=== PATIENT | female | born 1965 | race American Indian/Alaskan Native ===

== ENCOUNTER 2017-06-26 09:37 | Inpatient (IN) | payer MEDICARE ==
[2017-06-26 10:29] LABS: Basophils # (Auto) 0.1 K/mm3 (0.0-0.1); Basophils % (Auto) 0.6 % (0.0-1.8); Eosinophils # (Auto) 0.1 K/mm3 (0.0-0.4); Eosinophils % (Auto) 0.7 % (0.0-4.3); Hematocrit 41.8 % (30.3-42.9); Hemoglobin 14.3 gm/dl (10.1-14.3); Lymphocytes # (Auto) 3.5 K/mm3 (1.2-5.4); Lymphocytes % (Auto) 31.8 % (13.4-35.0); Mean Corpuscular HGB Conc 34 % (30-34); Mean Corpuscular Hemoglobin 29 pg (28-32); Mean Corpuscular Volume 85 fl (79-97); Monocytes # (Auto) 0.6 K/mm3 (0.0-0.8); Monocytes % (Auto) 5.2 % (0.0-7.3); Platelet Count 248 K/mm3 (140-440); Red Blood Count 4.92 M/mm3 (3.65-5.03); Red Cell Distribution Width 14.5 % (13.2-15.2)
[2017-06-26 10:42] LABS: BUN/Creatinine Ratio 14; Blood Urea Nitrogen 7 mg/dL (7-17); Calcium 9.5 mg/dL (8.4-10.2); Hemolysis Index 1
[2017-06-26] MEDS ORDERED: NACL 0.9% 1000 ML 1,000 ML IV ONE (11:21)
--- NOTE | 2017-06-26 12:06 | XRay Report ---
Chest 2 views: History: Chest pain. Findings: Normal cardiomediastinal silhouette. Trachea is midline. No consolidation, pneumothorax or pleural effusion. Impression: No acute cardiopulmonary findings.
[2017-06-26 13:03] LABS: Bilirubin,Urine NEG (Negative); Blood,Urine NEG (Negative); Color,Urine Yellow (Yellow); Protein,Urine <15 mg/dL mg/dL (Negative); Urobilinogen,Urine < 2.0 mg/dL (<2.0)
[2017-06-26 13:09] LABS: Amphetamine Screen,Urine PRESUMPTIVE NEGATIVE; Benzodiazepines Screen,Urine PRESUMPTIVE NEGATIVE; Methadone Screen,Urine PRESUMPTIVE NEGATIVE; Opiate Screen,Urine PRESUMPTIVE NEGATIVE
[2017-06-26 13:27] LABS: Cannabinoid Screen,Urine PRESUMPTIVE POSITIVE; Cocaine Screen,Urine PRESUMPTIVE POSITIVE
--- NOTE | 2017-06-26 16:27 | Emergency Department Report ---
ED Psych HPI - General Chief Complaint: Psych Stated Complaint: MENTAL HEALTH Time Seen by Provider: 06/26/17 10:53 Source: patient Mode of arrival: Ambulatory - History of Present Illness Initial Comments: Patient reports relapse of crack cocaine use and requesting rehab. Reports chest pain -: days(s) Associated Psychiatric Symptoms: none History of same: Yes Quality: intermittent Improves With: none Worsens With: drug use Context: recent drug abuse Associated Symptoms: other (chest pain) Treatments Prior to Arrival: none - Related Data Home Medications Medication Instructions Recorded Confirmed Last Taken Divalproex Sodium [Divalproex 500 mg PO HS 06/26/17 06/26/17 06/23/17 21:00 Sodium ER] Quetiapine Fumarate [QUEtiapine 300 mg PO HS 06/26/17 06/26/17 06/23/17 21:00 Fumarate] Zanaflex 2 mg PO Q4H PRN 06/26/17 06/26/17 Unknown Allergies Allergy/AdvReac Type Severity Reaction Status Date / Time Penicillins Allergy Hives Verified 06/26/17 09:40 ED Review of Systems ROS: Stated complaint: MENTAL HEALTH Other details as noted in HPI Other: GENERAL: No weight change, fatigue, weakness, fever, chills, or night sweats SKIN: No changes in skin or hair, no itching, no rashes, no jaundice HEAD: No trauma, headache, or visual changes EYES: No blurriness, tearing, itching, acute visual loss, conjunctival discoloration, or scleral icterus EARS: No hearing loss, tinnitus, vertigo, or earache NOSE: No rhinorrhea, stuffiness, sneezing, itching, or epistaxis MOUTH: No bleeding gums, hoarseness, sore throat, or swelling CARDIAC: Chest pain. No new murmur, palpitations, dyspnea on exertion, orthopnea, PND, or edema RESPIRATORY: No shortness of breath, wheeze, cough, sputum production, hemoptysis, pneumonia, asthma, bronchitis, or emphysema GI: No change in appetite, nausea, vomiting, dysphagia, change in bowel frequency, diarrhea, constipation, bleeding, hematemesis, melena, hematochezia, or abdominal pain URINARY: No frequency, urgency, polyuria, dysuria, hematuria, or incontinence MUSCULOSKELETAL: No muscle weakness, joint stiffness, decrease in range of motion, redness, swelling NEUROLOGIC: No loss of sensation, numbness, tingling, tremors, weakness, paralysis, seizures HEMATOLOGIC: No anemia, easy bruising, bleeding, petechiae, or purpura ENDOCRINE: No hot or cold intolerance, sweating, polyuria, polydipsia or, polyphagia no thyroid problems PSYCHIATRIC: Drug abuse. No change in mood, no anxiety, no depression ED Past Medical Hx - Past Medical History Hx Hypertension: Yes Hx Diabetes: Yes Hx Psychiatric Treatment: Yes (BIPOLAR, DEPRESSION) Additional medical history: BRONCHITIS - Surgical History Past Surgical History?: No Additional Surgical History: TUBAL LIGATION - Social History Smoking Status: Current Every Day Smoker Substance Use Type: Alcohol, Cocaine, Marijuana - Medications Home Medications: Home Medications Medication Instructions Recorded Confirmed Last Taken Type Divalproex Sodium [Divalproex 500 mg PO HS 06/26/17 06/26/17 06/23/17 21:00 History Sodium ER] Quetiapine Fumarate [QUEtiapine 300 mg PO HS 06/26/17 06/26/17 06/23/17 21:00 History Fumarate] Zanaflex 2 mg PO Q4H PRN 06/26/17 06/26/17 Unknown History ED Physical Exam - General Limitations: No Limitations - Other Other exam information: GENERAL: Patient in no acute distress HEAD: Normocephalic, atraumatic EYES: PERRLA, EOM intact, no scleral icterus, visual mendoza and acuity wnl NOSE: No tenderness, discharge, sinus tenderness MOUTH: No erythema, bleeding, exudate HEART: Regular rate and rhythm, no murmur, S1-S2 are auscultated, pulses are symmetric LUNGS: bilateral breath sounds. No wheezing, rales, rhonchi ABDOMEN: Normal bowel sounds, no tenderness, no rebound, no guarding, no masses , no CVA tenderness MUSCULOSKELETAL: Normal joint range of motion, no redness, no swelling, no tenderness NEUROLOGIC: GCS 15, Alert and Oriented x3, Cranial nerves intact, normal sensation, normal strength, normal gait, no cerebellar deficit PSYCHIATRIC: No homicidal or suicidal ideation, no anxiety, no depression, no hallucinations SKIN: Skin is warm and dry, no wounds, no rashes ED Course Vital Signs 06/26/17 06/26/17 06/26/17 09:40 10:24 10:45 Temperature 99.1 F 98.7 F Pulse Rate 96 H Respiratory 18 18 18 Rate Blood Pressure 166/109 Blood Pressure 146/98 [Left] O2 Sat by Pulse 100 Oximetry ED Medical Decision Making - Lab Data Result diagrams: 06/26/17 09:58 06/26/17 18:23 Laboratory Results - last 24 hr 06/26/17 06/26/17 06/26/17 09:58 09:58 09:58 WBC RBC Hgb Hct MCV MCH MCHC RDW Plt Count Lymph % (Auto) [place] % (Auto) Eos % (Auto) Baso % (Auto) Lymph # [place] # Eos # Baso # Seg Neutrophils % Seg Neutrophils # Sodium 143 Potassium 3.9 Chloride 106.4 Carbon Dioxide 24 Anion Gap 17 BUN 7 Creatinine 0.5 L Estimated GFR > 60 BUN/Creatinine Ratio 14 Glucose 109 H Calcium 9.5 Troponin T Urine Color Urine Turbidity Urine pH Ur Specific [place] Urine Protein Urine Glucose (UA) Urine Ketones Urine Blood Urine Nitrite Urine Bilirubin Urine Urobilinogen Ur Leukocyte Esterase Urine WBC (Auto) Urine RBC (Auto) U Epithel Cells (Auto) Salicylates < 0.3 L Urine Opiates Screen Urine Methadone Screen Acetaminophen < 5.0 L Ur Barbiturates Screen Ur Phencyclidine Scrn Ur Amphetamines Screen U Benzodiazepines Scrn Urine Cocaine Screen U Marijuana (THC) Screen Drugs of Abuse Note Plasma/Serum Alcohol 06/26/17 06/26/17 06/26/17 09:58 09:58 10:29 WBC 10.9 RBC 4.92 Hgb 14.3 Hct 41.8 MCV 85 MCH 29 MCHC 34 RDW 14.5 Plt Count 248 Lymph % (Auto) 31.8 [place] % (Auto) 5.2 Eos % (Auto) 0.7 Baso % (Auto) 0.6 Lymph # 3.5 [place] # 0.6 Eos # 0.1 Baso # 0.1 Seg Neutrophils % 61.7 Seg Neutrophils # 6.7 Sodium Potassium Chloride Carbon Dioxide Anion Gap BUN Creatinine Estimated GFR BUN/Creatinine Ratio Glucose Calcium Troponin T Urine Color Yellow Urine Turbidity Clear Urine pH 7.0 Ur Specific [place] 1.011 Urine Protein <15 mg/dl Urine Glucose (UA) Neg Urine Ketones Neg Urine Blood Neg Urine Nitrite Neg Urine Bilirubin Neg Urine Urobilinogen < 2.0 Ur Leukocyte Esterase Tr Urine WBC (Auto) 1.0 Urine RBC (Auto) 1.0 U Epithel Cells (Auto) 2.0 Salicylates Urine Opiates Screen Urine Methadone Screen Acetaminophen Ur Barbiturates Screen Ur Phencyclidine Scrn Ur Amphetamines Screen U Benzodiazepines Scrn Urine Cocaine Screen U Marijuana (THC) Screen Drugs of Abuse Note Plasma/Serum Alcohol < 0.01 06/26/17 06/26/17 06/26/17 10:29 10:58 14:00 WBC RBC Hgb Hct MCV MCH MCHC RDW Plt Count Lymph % (Auto) [place] % (Auto) Eos % (Auto) Baso % (Auto) Lymph # [place] # Eos # Baso # Seg Neutrophils % Seg Neutrophils # Sodium Potassium Chloride Carbon Dioxide Anion Gap BUN Creatinine Estimated GFR BUN/Creatinine Ratio Glucose Calcium Troponin T < 0.010 < 0.010 Urine Color Urine Turbidity Urine pH Ur Specific [place] Urine Protein Urine Glucose (UA) Urine Ketones Urine Blood Urine Nitrite Urine Bilirubin Urine Urobilinogen Ur Leukocyte Esterase Urine WBC (Auto) Urine RBC (Auto) U Epithel Cells (Auto) Salicylates Urine Opiates Screen Presumptive negative Urine Methadone Screen Presumptive negative Acetaminophen Ur Barbiturates Screen Presumptive negative Ur Phencyclidine Scrn Presumptive negative Ur Amphetamines Screen Presumptive negative U Benzodiazepines Scrn Presumptive negative Urine Cocaine Screen Presumptive positive U Marijuana (THC) Screen Presumptive positive Drugs of Abuse Note Disclamer Plasma/Serum Alcohol - EKG Data When compared to previous EKG there are: no significant change - Radiology Data Radiology results: report reviewed - Medical Decision Making Patient comfortable. Updated with results. Plan admit for further evaluation. Hospitalists accepts admission. Critical care attestation.: If time is entered above; I have spent that time in minutes in the direct care of this critically ill patient, excluding procedure time. ED Disposition Clinical Impression: Cocaine abuse, Encounter for drug rehabilitation Disposition: [id number] OP ADMIT IP TO THIS HOSP Is pt being admited?: Yes Condition: Stable Time of Disposition: 16:53
[2017-06-26] MEDS ORDERED: ROBAXIN PO PRN (16:45)
[2017-06-26] MEDS ORDERED: BENTYL PO PRN (16:45)
[2017-06-26] MEDS ORDERED: ATIVAN IV PRN ×2 (16:47→17:30)
[2017-06-26] MEDS ORDERED: VISTARIL PO PRN (16:47)
[2017-06-26] MEDS ORDERED: REQUIP PO PRN (16:53)
[2017-06-26] MEDS ORDERED: VISTARIL IM PRN (16:54)
[2017-06-26] MEDS ORDERED: MOTRIN PO PRN (17:24)
[2017-06-26] MEDS ORDERED: TYLENOL PO PRN ×2 (17:24→23:10)
[2017-06-26] MEDS ORDERED: IMODIUM PO PRN (17:25)
[2017-06-26] MEDS ORDERED: SENOKOT PO PRN (17:26)
[2017-06-26] MEDS ORDERED: DULCOLAX PR PRN (17:27)
[2017-06-26] MEDS ORDERED: ALUM-MAG HYDROX-SIMETH 200-200-20MG/5ML PO PRN (17:28)
[2017-06-26] MEDS ORDERED: ZOFRAN PO PRN (17:29)
[2017-06-26] MEDS ORDERED: ZOFRAN IV PRN ×2 (17:29→23:10)
[2017-06-26] MEDS ORDERED: INFUVITE IV ONE (18:00)
[2017-06-26] MEDS ORDERED: D5NS 1,000 ML IV SCH (18:00)
[2017-06-26] MEDS ORDERED: VITAMIN B1 IV ONE (18:00)
[2017-06-26] MEDS ORDERED: SODIUM CHLORIDE FLUSH SYRINGE 10 ML IV SCH (18:00)
[2017-06-26] MEDS ORDERED: FOLVITE IV ONE (18:00)
[2017-06-26] MEDS ORDERED: LACTATED RINGERS IV ONE (18:00)
[2017-06-26] MEDS: CATAPRES PO SCH ×2 (18:07→22:26)
[2017-06-26] MEDS: ATIVAN PO SCH ×2 (18:08→22:26)
[2017-06-26 18:48] LABS: INR 0.91 (0.87-1.13)
[2017-06-26 18:53] LABS: Lipase 39 units/L (13-60)
[2017-06-26 18:54] LABS: Alanine Aminotransferase 8 units/L (7-56); Albumin 4.4 g/dL (3.9-5); BUN/Creatinine Ratio 12; Blood Urea Nitrogen 7 mg/dL (7-17); Calcium 9.3 mg/dL (8.4-10.2); Hemolysis Index 0
[2017-06-26] MEDS: DESYREL PO SCH (22:27)
--- NOTE | 2017-06-26 23:04 | History and Physical Report ---
History of Present Illness Date of examination: 06/26/17 Date of admission: 06/26/17 15:28 Chief complaint: Chief complaint: Being Daniele crack cocaine and alcohol for 5 days. History of present illness: 52-year-old -[place] female with history of EtOH and cocaine crack cocaine abuse apparently drug free for the last 10 years and alcohol free for last 10 years was involved in a 5 days binge for alcohol and crack cocaine. Apparently she spent $1200 over the last 5 days for crack cocaine and alcohol-- more so for crack cocaine. Patient wants help for relapse and detox regimen. No withdrawal symptoms at this point. Patient has been smoking and alcohol and crack cocaine from age 22 to 42 years and stopped for 10 years. Relapsed 5 days ago and went on a binge with crack cocaine and alcohol. No fever no chills Patient reports feeling nauseated and having moderate hallucinations muscle aches dehydration anxious as stated intense thirst chills and weight loss of 12 pounds. Patient displays mild tremulous lacrimation and nasal discharge. Patient reports medical history of palpitations. Patient wants inpatient detox and rehabilitation Past History Past Medical History: diabetes, hypertension, other (bipolar disorder) Past Surgical History: Other (tubal ligation) Social history: lives with family, smoking, alcohol abuse, full code, other ( crack cocaine and nicotine) Family history: hypertension Medications and Allergies Allergies Allergy/AdvReac Type Severity Reaction Status Date / Time Penicillins Allergy Hives Verified 06/26/17 09:40 Home Medications Medication Instructions Recorded Confirmed Last Taken Type Divalproex Sodium [Divalproex 500 mg PO HS 06/26/17 06/26/17 06/23/17 21:00 History Sodium ER] Quetiapine Fumarate [QUEtiapine 300 mg PO HS 06/26/17 06/26/17 06/23/17 21:00 History Fumarate] Zanaflex 2 mg PO Q4H PRN 06/26/17 06/26/17 Unknown History Active Meds: Active Medications Acetaminophen (Tylenol) 500 mg PO Q6H PRN PRN Reason: TEMP>100.4 Last Admin: 06/26/17 19:04 Dose: 500 mg Al Hydrox/Mg Hydrox/Simethicone (Alum-Mag Hydrox-Simeth [phone]/5ml) 30 ml PO Q6H PRN PRN Reason: Indigestion Bisacodyl (Dulcolax) 10 mg AR QDAY PRN PRN Reason: Laxative Effect Clonidine HCl (Catapres) 0.1 mg PO Q4H [facility] Last Admin: 06/26/17 22:26 Dose: 0.1 mg Dicyclomine HCl (Bentyl) 20 mg PO Q6H PRN PRN Reason: ABDOMINAL DISCOMFORT Folic Acid (Folvite) 1 mg PO DAILY [facility] Hydroxyzine HCl (Vistaril) 50 mg IM Q6H PRN PRN Reason: BREAKTHROUGH ANXIETY Hydroxyzine Pamoate (Vistaril) 50 mg PO Q6H PRN PRN Reason: Anxiety Multivitamins/Minerals 10 ml/Thiamine HCl 100 mg/ Folic Acid 1 mg/ Lactated Ringer's 1,011.2 mls @ 150 mls/hr IV ONCE ONE Stop: 06/27/17 00:44 Last Admin: 06/26/17 19:13 Dose: 150 mls/hr Dextrose/Sodium Chloride (D5ns) 1,000 mls @ 60 mls/hr IV DIRECT [facility] Last Admin: 06/26/17 19:04 Dose: 60 mls/hr Ibuprofen (Motrin) 600 mg PO Q8H PRN PRN Reason: Pain, Mild <5 Loperamide HCl (Imodium) 2 mg PO Q8H PRN PRN Reason: Diarrhea Lorazepam (Ativan) 1 mg IV Q4H PRN PRN Reason: Agitation Lorazepam (Ativan) 1 mg PO Q4H [facility] Stop: 06/27/17 13:01 Last Admin: 06/26/17 22:26 Dose: 1 mg Lorazepam (Ativan) 1 mg PO Q6H [facility] Stop: 06/28/17 11:01 Lorazepam (Ativan) 1 mg PO Q8H [facility] Stop: 06/29/17 09:01 Lorazepam (Ativan) 2 mg IV PRN PRN PRN Reason: SEIZURE Methocarbamol (Robaxin) 750 mg PO Q6H PRN PRN Reason: Muscle ACHES Multivitamins (Theragran Tab) 1 each PO DAILY [facility] Ondansetron HCl (Zofran) 4 mg PO Q6H PRN PRN Reason: Nausea And Vomiting Ondansetron HCl (Zofran) 4 mg IV Q6H PRN PRN Reason: Nausea And Vomiting Quetiapine Fumarate (Seroquel) 300 mg PO QHS [facility] Last Admin: 06/26/17 22:26 Dose: 300 mg Ropinirole HCl (Requip) 0.5 mg PO Q12H PRN PRN Reason: RESTLESS LEGS Senna (Senokot) 16.4 mg PO QHS PRN PRN Reason: Laxative Effect Sodium Chloride (Sodium Chloride Flush Syringe 10 Ml) 10 ml IV Q8H [facility] Last Admin: 06/26/17 19:08 Dose: 10 ml Thiamine HCl (Vitamin B-1) 100 mg PO QDAY [facility] Trazodone HCl (Desyrel) 50 mg PO QHS [facility] Last Admin: 06/26/17 22:27 Dose: 50 mg Review of Systems All systems: negative Constitutional: anorexia, poor appetite, no weight loss, no fever, no chills, no sweats, no night sweats Ears, nose, mouth and throat: no hoarseness, no sore throat, no swelling in mouth, no swelling in throat Breasts: deferred Cardiovascular: no chest pain, no orthopnea, no palpitations, no rapid/ irregular heart beat, no edema, no syncope, no lightheadedness, no shortness of breath Respiratory: no cough, no cough with sputum, no excessive sputum, no hemoptysis , no shortness of breath, no dyspnea on exertion Gastrointestinal: nausea, no vomiting, no diarrhea, no constipation Genitourinary Female: urinary frequency, no dysuria, no urgency, no stress incontinence Menstruation: ammenorrhea Rectal: no pain Musculoskeletal: myalgias, no neck stiffness, no neck pain, no shooting arm pain Integumentary: no rash, no pruritis, no redness, no sores, no wounds, no jaundice, no boils, no blisters Neurological: no head injury, no seizures, no syncope Endocrine: no cold intolerance, no heat intolerance, no polyphagia, no excessive thirst Hematologic/Lymphatic: no easy bruising, no easy bleeding Allergic/Immunologic: no urticaria, no allergic rhinitis, no wheezing Exam - Constitutional Vitals: Temp Pulse Resp BP Pulse Ox 98.9 F 71 18 136/78 96 06/26/17 20:54 06/26/17 20:54 06/26/17 20:54 06/26/17 22:26 06/26/17 20:54 General appearance: Present: no acute distress, well-nourished - EENT Eyes: Present: PERRL ENT: hearing intact, clear oral mucosa - Neck Neck: Present: supple, normal ROM - Respiratory Respiratory effort: normal Respiratory: bilateral: CTA - Cardiovascular Heart rate: 80 Rhythm: regular Heart Sounds: Present: S1 & S2. Absent: rub, click - Extremities Extremities: no ischemia, pulses intact, pulses symmetrical, No edema Peripheral Pulses: within normal limits - Abdominal General gastrointestinal: Present: soft, non-tender, non-distended, normal bowel sounds Female genitourinary: Present: normal - Integumentary Integumentary: Present: clear, warm, dry - Musculoskeletal Musculoskeletal: gait normal, strength equal bilaterally - Psychiatric Psychiatric: appropriate mood/affect, intact judgment & insight - Neurologic Neurologic: CNII-XII intact, moves all extremities - Allied Health Allied health notes reviewed: nursing, case management Results - Labs CBC & Chem 7: 06/26/17 09:58 06/26/17 18:23 Labs: Laboratory Last Values WBC 10.9 K/mm3 (4.5-11.0) 06/26/17 09:58 RBC 4.92 M/mm3 (3.65-5.03) 06/26/17 09:58 Hgb 14.3 gm/dl (10.1-14.3) 06/26/17 09:58 Hct 41.8 % (30.3-42.9) 06/26/17 09:58 MCV 85 fl (79-97) 06/26/17 09:58 MCH 29 pg (28-32) 06/26/17 09:58 MCHC 34 % (30-34) 06/26/17 09:58 RDW 14.5 % (13.2-15.2) 06/26/17 09:58 Plt Count 248 K/mm3 (140-440) 06/26/17 09:58 Lymph % (Auto) 31.8 % (13.4-35.0) 06/26/17 09:58 [place] % (Auto) 5.2 % (0.0-7.3) 06/26/17 09:58 Eos % (Auto) 0.7 % (0.0-4.3) 06/26/17 09:58 Baso % (Auto) 0.6 % (0.0-1.8) 06/26/17 09:58 Lymph # 3.5 K/mm3 (1.2-5.4) 06/26/17 09:58 [place] # 0.6 K/mm3 (0.0-0.8) 06/26/17 09:58 Eos # 0.1 K/mm3 (0.0-0.4) 06/26/17 09:58 Baso # 0.1 K/mm3 (0.0-0.1) 06/26/17 09:58 Seg Neutrophils % 61.7 % (40.0-70.0) 06/26/17 09:58 Seg Neutrophils # 6.7 K/mm3 (1.8-7.7) 06/26/17 09:58 PT 12.7 Sec. (12.2-14.9) 06/26/17 18:23 INR 0.91 (0.87-1.13) 06/26/17 18:23 Sodium 142 mmol/L (137-145) 06/26/17 18:23 Potassium 4.0 mmol/L (3.6-5.0) 06/26/17 18:23 Chloride 103.3 mmol/L (98-107) 06/26/17 18:23 Carbon Dioxide 27 mmol/L (22-30) 06/26/17 18:23 Anion Gap 16 mmol/L 06/26/17 18:23 BUN 7 mg/dL (7-17) 06/26/17 18:23 Creatinine 0.6 mg/dL (0.7-1.2) L 06/26/17 18:23 Estimated GFR > 60 ml/min 06/26/17 18:23 BUN/Creatinine Ratio 12 % 06/26/17 18:23 Glucose 104 mg/dL (65-100) H 06/26/17 18:23 POC Glucose 114 (70-105) H 06/26/17 22:56 Calcium 9.3 mg/dL (8.4-10.2) 06/26/17 18:23 Total Bilirubin 0.50 mg/dL (0.1-1.2) 06/26/17 18:23 AST 11 units/L (5-40) 06/26/17 18:23 ALT 8 units/L (7-56) 06/26/17 18:23 Alkaline Phosphatase 62 units/L (35-129) 06/26/17 18:23 Troponin T < 0.010 ng/mL (0.00-0.029) 06/26/17 14:00 Total Protein 6.4 g/dL (6.3-8.2) 06/26/17 18:23 Albumin 4.4 g/dL (3.9-5) 06/26/17 18:23 Albumin/Globulin Ratio 2.2 % 06/26/17 18:23 Amylase 56 units/L (27-131) 06/26/17 18:23 Lipase 39 units/L (13-60) 06/26/17 18:23 Urine Color Yellow (Yellow) 06/26/17 10:29 Urine Turbidity Clear (Clear) 06/26/17 10:29 Urine pH 7.0 (5.0-7.0) 06/26/17 10:29 Ur Specific [place] 1.011 (1.003-1.030) 06/26/17 10:29 Urine Protein <15 mg/dl mg/dL (Negative) 06/26/17 10:29 Urine Glucose (UA) Neg mg/dL (Negative) 06/26/17 10:29 Urine Ketones Neg mg/dL (Negative) 06/26/17 10:29 Urine Blood Neg (Negative) 06/26/17 10:29 Urine Nitrite Neg (Negative) 06/26/17 10:29 Urine Bilirubin Neg (Negative) 06/26/17 10:29 Urine Urobilinogen < 2.0 mg/dL (<2.0) 06/26/17 10:29 Ur Leukocyte Esterase Tr (Negative) 06/26/17 10:29 Urine WBC (Auto) 1.0 /HPF (0.0-6.0) 06/26/17 10:29 Urine RBC (Auto) 1.0 /HPF (0.0-6.0) 06/26/17 10:29 U Epithel Cells (Auto) 2.0 /HPF (0-13.0) 06/26/17 10:29 Salicylates < 0.3 mg/dL (2.8-20.0) L 06/26/17 09:58 Urine Opiates Screen Presumptive negative 06/26/17 10:29 Urine Methadone Screen Presumptive negative 06/26/17 10:29 Acetaminophen < 5.0 ug/mL (10.0-30.0) L 06/26/17 09:58 Ur Barbiturates Screen Presumptive negative 06/26/17 10:29 Ur Phencyclidine Scrn Presumptive negative 06/26/17 10:29 Ur Amphetamines Screen Presumptive negative 06/26/17 10:29 U Benzodiazepines Scrn Presumptive negative 06/26/17 10:29 Urine Cocaine Screen Presumptive positive 06/26/17 10:29 U Marijuana (THC) Screen Presumptive positive 06/26/17 10:29 Drugs of Abuse Note Disclamer 06/26/17 10:29 Plasma/Serum Alcohol < 0.01 % (0-0.07) 06/26/17 09:58 - Imaging and Cardiology EKG: report reviewed Assessment and Plan Advance Directives: Yes (full code) VTE prophylaxis?: Chemical Plan of care discussed with patient/family: Yes - Patient Problems (1) Cocaine abuse Current Visit: Yes Status: Acute Plan to address problem: Patient initiated on lorazepam for agitation and also methocarbamol for muscle spasms. Morphine for severe pain. Counseled about cocaine abuse. (2) Encounter for drug rehabilitation Current Visit: Yes Status: Acute (3) EtOH dependence Current Visit: Yes Status: Chronic Qualifiers: Substance use status: uncomplicated Qualified Code(s): F10.20 - Alcohol dependence, uncomplicated Plan to address problem: Patient counseled about 8 years dependence and possible referral to inpatient rehabilitation/detox (4) Bipolar disorder Current Visit: Yes Status: Chronic Qualifiers: Active/Remission status: currently active Plan to address problem: continue Seroquel (5) Diabetes Current Visit: Yes Status: Chronic Qualifiers: Diabetes mellitus type: type 2 Plan to address problem: Patient not clear about history of diabetes. Patient attributes her high blood sugars to Seroquel which may be true. Colace for now and check hemoglobin A1c (6) DVT prophylaxis Current Visit: Yes Status: Acute Plan to address problem: heparin 5000 units subcutaneous every 12 hours
[2017-06-26] MEDS ORDERED: PERCOCET 5/325 PO PRN (23:10)
[2017-06-26] MEDS ORDERED: MORPHINE IV PRN (23:10)
[2017-06-26] MEDS ORDERED: SODIUM CHLORIDE FLUSH SYRINGE 10 ML IV PRN (23:10)
[2017-06-26] MEDS ORDERED: TIZANIDINE 2 MG PO PRN (23:14)
[2017-06-26] MEDS ORDERED: ZANAFLEX PO PRN (23:24)
[2017-06-27] MEDS: CATAPRES PO SCH ×6 (01:15→21:11)
[2017-06-27] MEDS: ATIVAN PO SCH ×5 (01:53→17:20)
[2017-06-27] MEDS: D5NS 1,000 ML IV SCH ×2 (01:55→10:40)
[2017-06-27 05:40] LABS: Basophils % (Auto) 0.6 % (0.0-1.8); Eosinophils # (Auto) 0.1 K/mm3 (0.0-0.4); Eosinophils % (Auto) 2.2 % (0.0-4.3); Hematocrit 39.3 % (30.3-42.9); Hemoglobin 13.1 gm/dl (10.1-14.3); Lymphocytes # (Auto) 2.9 K/mm3 (1.2-5.4); Mean Corpuscular HGB Conc 33 % (30-34); Mean Corpuscular Hemoglobin 29 pg (28-32); Mean Corpuscular Volume 87 fl (79-97); Monocytes # (Auto) 0.4 K/mm3 (0.0-0.8); Platelet Count 209 K/mm3 (140-440); Red Blood Count 4.55 M/mm3 (3.65-5.03); Red Cell Distribution Width 14.4 % (13.2-15.2)
[2017-06-27 05:53] LABS: Alanine Aminotransferase 7 units/L (7-56); Albumin 3.3 g/dL (3.9-5); BUN/Creatinine Ratio 13; Blood Urea Nitrogen 8 mg/dL (7-17); Calcium 8.6 mg/dL (8.4-10.2); Hemolysis Index 9
--- NOTE | 2017-06-27 09:50 | Progress Note ---
Assessment and Plan Assessment and plan: --drug rehabilitation --Cocaine abuse; Continue Ativan for agitation, Muscle relaxer for spasms Morphine for pain. Counseling done advised to quit cocaine use --History of alcohol abuse; Counseling done, strongly advised to quit alcohol intake Closely monitor for any withdrawal symptoms, [facility] protocol as needed --Ongoing tobacco use; smoking cessation counseling done, advised nicotine patch as needed --Mild Hyperglycemia ; probably drug-induced hemoglobin A1c 5.5, patient does not have diabetes --Moderate protein calorie malnutrition; hypoalbuminemia Nutrition supplements, supportive care --Bipolar disorder; continue Seroquel psych evaluation as needed --DVT prophylaxis; heparin, Plan of care discussed with the patient and her nurse History Interval history: Patient seen and examined Medical records reviewed No new events reported by the nursing staff Admitted for polysubstance/ drug rehabilitation Hospitalist Physical - Constitutional Vitals: Temp Pulse Resp BP Pulse Ox 98.4 F 68 18 117/70 98 06/27/17 04:19 06/27/17 06:01 06/27/17 05:55 06/27/17 06:01 06/27/17 04:19 General appearance: Present: no acute distress, well-nourished - EENT Eyes: Present: PERRL, EOM intact - Neck Neck: Present: supple, normal ROM - Respiratory Respiratory effort: normal Respiratory: negative: rales, rhonchi, wheezing - Cardiovascular Rhythm: regular Heart Sounds: Present: S1 & S2 - Extremities Extremities: no ischemia, No edema - Abdominal General gastrointestinal: soft, non-tender, non-distended, normal bowel sounds - Integumentary Integumentary: Present: clear, warm - Psychiatric Psychiatric: appropriate mood/affect, cooperative - Neurologic Neurologic: CNII-XII intact, moves all extremities Results - Labs CBC & Chem 7: 06/27/17 04:52 06/27/17 04:52 Labs: Laboratory Last Values WBC 6.2 K/mm3 (4.5-11.0) 06/27/17 04:52 RBC 4.55 M/mm3 (3.65-5.03) 06/27/17 04:52 Hgb 13.1 gm/dl (10.1-14.3) 06/27/17 04:52 Hct 39.3 % (30.3-42.9) 06/27/17 04:52 MCV 87 fl (79-97) 06/27/17 04:52 MCH 29 pg (28-32) 06/27/17 04:52 MCHC 33 % (30-34) 06/27/17 04:52 RDW 14.4 % (13.2-15.2) 06/27/17 04:52 Plt Count 209 K/mm3 (140-440) 06/27/17 04:52 Lymph % (Auto) 47.0 % (13.4-35.0) H 06/27/17 04:52 [place] % (Auto) 7.0 % (0.0-7.3) 06/27/17 04:52 Eos % (Auto) 2.2 % (0.0-4.3) 06/27/17 04:52 Baso % (Auto) 0.6 % (0.0-1.8) 06/27/17 04:52 Lymph # 2.9 K/mm3 (1.2-5.4) 06/27/17 04:52 [place] # 0.4 K/mm3 (0.0-0.8) 06/27/17 04:52 Eos # 0.1 K/mm3 (0.0-0.4) 06/27/17 04:52 Baso # 0.0 K/mm3 (0.0-0.1) 06/27/17 04:52 Seg Neutrophils % 43.2 % (40.0-70.0) 06/27/17 04:52 Seg Neutrophils # 2.7 K/mm3 (1.8-7.7) 06/27/17 04:52 PT 12.7 Sec. (12.2-14.9) 06/26/17 18:23 INR 0.91 (0.87-1.13) 06/26/17 18:23 Sodium 139 mmol/L (137-145) 06/27/17 04:52 Potassium 3.6 mmol/L (3.6-5.0) 06/27/17 04:52 Chloride 105.7 mmol/L (98-107) 06/27/17 04:52 Carbon Dioxide 23 mmol/L (22-30) 06/27/17 04:52 Anion Gap 14 mmol/L 06/27/17 04:52 BUN 8 mg/dL (7-17) 06/27/17 04:52 Creatinine 0.6 mg/dL (0.7-1.2) L 06/27/17 04:52 Estimated GFR > 60 ml/min 06/27/17 04:52 BUN/Creatinine Ratio 13 % 06/27/17 04:52 Glucose 101 mg/dL (65-100) H 06/27/17 04:52 POC Glucose 114 (70-105) H 06/26/17 22:56 Hemoglobin A1c 5.5 % (4-6) 06/27/17 00:01 Calcium 8.6 mg/dL (8.4-10.2) 06/27/17 04:52 Total Bilirubin 0.30 mg/dL (0.1-1.2) 06/27/17 04:52 AST 9 units/L (5-40) 06/27/17 04:52 ALT 7 units/L (7-56) 06/27/17 04:52 Alkaline Phosphatase 51 units/L (35-129) 06/27/17 04:52 Troponin T < 0.010 ng/mL (0.00-0.029) 06/26/17 14:00 Total Protein 5.4 g/dL (6.3-8.2) L 06/27/17 04:52 Albumin 3.3 g/dL (3.9-5) L 06/27/17 04:52 Albumin/Globulin Ratio 1.6 % 06/27/17 04:52 Amylase 56 units/L (27-131) 06/26/17 18:23 Lipase 39 units/L (13-60) 06/26/17 18:23 Urine Color Yellow (Yellow) 06/26/17 10:29 Urine Turbidity Clear (Clear) 06/26/17 10:29 Urine pH 7.0 (5.0-7.0) 06/26/17 10:29 Ur Specific [place] 1.011 (1.003-1.030) 06/26/17 10:29 Urine Protein <15 mg/dl mg/dL (Negative) 06/26/17 10:29 Urine Glucose (UA) Neg mg/dL (Negative) 06/26/17 10:29 Urine Ketones Neg mg/dL (Negative) 06/26/17 10:29 Urine Blood Neg (Negative) 06/26/17 10:29 Urine Nitrite Neg (Negative) 06/26/17 10:29 Urine Bilirubin Neg (Negative) 06/26/17 10:29 Urine Urobilinogen < 2.0 mg/dL (<2.0) 06/26/17 10:29 Ur Leukocyte Esterase Tr (Negative) 06/26/17 10:29 Urine WBC (Auto) 1.0 /HPF (0.0-6.0) 06/26/17 10:29 Urine RBC (Auto) 1.0 /HPF (0.0-6.0) 06/26/17 10:29 U Epithel Cells (Auto) 2.0 /HPF (0-13.0) 06/26/17 10:29 Salicylates < 0.3 mg/dL (2.8-20.0) L 06/26/17 09:58 Urine Opiates Screen Presumptive negative 06/26/17 10:29 Urine Methadone Screen Presumptive negative 06/26/17 10:29 Acetaminophen < 5.0 ug/mL (10.0-30.0) L 06/26/17 09:58 Ur Barbiturates Screen Presumptive negative 06/26/17 10:29 Ur Phencyclidine Scrn Presumptive negative 06/26/17 10:29 Ur Amphetamines Screen Presumptive negative 06/26/17 10:29 U Benzodiazepines Scrn Presumptive negative 06/26/17 10:29 Urine Cocaine Screen Presumptive positive 06/26/17 10:29 U Marijuana (THC) Screen Presumptive positive 06/26/17 10:29 Drugs of Abuse Note Disclamer 06/26/17 10:29 Plasma/Serum Alcohol < 0.01 % (0-0.07) 06/26/17 09:58
[2017-06-27] MEDS: PEPCID PO SCH ×2 (10:24→22:07)
[2017-06-27] MEDS: SODIUM CHLORIDE FLUSH SYRINGE 10 ML IV SCH ×2 (10:24→22:12)
[2017-06-27] MEDS: HEPARIN SUB-Q SCH ×2 (10:25→22:07)
[2017-06-27] MEDS: FOLVITE PO SCH (10:25)
[2017-06-27] MEDS: THERAGRAN Tab PO SCH (10:25)
[2017-06-27] MEDS: VITAMIN B-1 PO SCH (10:25)
[2017-06-27] MEDS: HABITROL TD SCH (10:49)
[2017-06-27] MEDS ORDERED: NON-FORMULARY (Quetiapine Fumarate [Quetiapine Fumarate] 300 MG) PO SCH (22:00)
[2017-06-27] MEDS: DESYREL PO SCH (22:07)
[2017-06-28] MEDS: ATIVAN PO SCH ×4 (00:23→18:39)
[2017-06-28] MEDS: CATAPRES PO SCH ×6 (01:45→21:32)
[2017-06-28] MEDS: D5NS 1,000 ML IV SCH ×2 (01:52→14:49)
[2017-06-28] MEDS: PEPCID PO SCH ×2 (09:34→21:29)
[2017-06-28] MEDS: HABITROL TD SCH (09:34)
[2017-06-28] MEDS: HEPARIN SUB-Q SCH ×2 (09:35→21:29)
[2017-06-28] MEDS: THERAGRAN Tab PO SCH (09:35)
[2017-06-28] MEDS: VITAMIN B-1 PO SCH (09:35)
[2017-06-28] MEDS: FOLVITE PO SCH (09:35)
[2017-06-28] MEDS: SODIUM CHLORIDE FLUSH SYRINGE 10 ML IV SCH ×2 (09:39→21:33)
--- NOTE | 2017-06-28 14:22 | Progress Note ---
Assessment and Plan Assessment and plan: --drug rehabilitation --History of alcohol abuse; Counseling done, strongly advised to quit alcohol intake Closely monitor for any withdrawal symptoms, [facility] protocol as needed --Cocaine abuse; Continue Ativan for agitation, Muscle relaxer for spasms Morphine for pain. Counseling done advised to quit cocaine use --Ongoing tobacco use; smoking cessation counseling done, advised nicotine patch as needed --Mild Hyperglycemia ; probably drug-induced hemoglobin A1c 5.5, patient does not have diabetes --Moderate protein calorie malnutrition; hypoalbuminemia Nutrition supplements, supportive care --Bipolar disorder; continue Seroquel psych evaluation as needed --DVT prophylaxis; heparin, Plan of care discussed with the patient and her nurse History Interval history: Patient seen and examined medical records reviewed She is better no new complaints Vital signs stable Hospitalist Physical - Constitutional Vitals: Temp Pulse Resp BP Pulse Ox 99.0 F 58 L 18 135/72 100 06/28/17 12:55 06/28/17 12:55 06/28/17 12:55 06/28/17 12:55 06/28/17 12:55 General appearance: Present: no acute distress, well-nourished - EENT Eyes: Present: PERRL, EOM intact - Neck Neck: Present: supple, normal ROM - Respiratory Respiratory effort: normal Respiratory: negative: rales, rhonchi, wheezing - Cardiovascular Rhythm: regular Heart Sounds: Present: S1 & S2 - Extremities Extremities: no ischemia, No edema - Abdominal General gastrointestinal: soft, non-tender, non-distended, normal bowel sounds - Integumentary Integumentary: Present: clear, warm - Psychiatric Psychiatric: appropriate mood/affect, cooperative - Neurologic Neurologic: CNII-XII intact, moves all extremities Results - Labs CBC & Chem 7: 06/27/17 04:52 06/27/17 04:52 Labs: Laboratory Last Values WBC 6.2 K/mm3 (4.5-11.0) 06/27/17 04:52 RBC 4.55 M/mm3 (3.65-5.03) 06/27/17 04:52 Hgb 13.1 gm/dl (10.1-14.3) 06/27/17 04:52 Hct 39.3 % (30.3-42.9) 06/27/17 04:52 MCV 87 fl (79-97) 06/27/17 04:52 MCH 29 pg (28-32) 06/27/17 04:52 MCHC 33 % (30-34) 06/27/17 04:52 RDW 14.4 % (13.2-15.2) 06/27/17 04:52 Plt Count 209 K/mm3 (140-440) 06/27/17 04:52 Lymph % (Auto) 47.0 % (13.4-35.0) H 06/27/17 04:52 [place] % (Auto) 7.0 % (0.0-7.3) 06/27/17 04:52 Eos % (Auto) 2.2 % (0.0-4.3) 06/27/17 04:52 Baso % (Auto) 0.6 % (0.0-1.8) 06/27/17 04:52 Lymph # 2.9 K/mm3 (1.2-5.4) 06/27/17 04:52 [place] # 0.4 K/mm3 (0.0-0.8) 06/27/17 04:52 Eos # 0.1 K/mm3 (0.0-0.4) 06/27/17 04:52 Baso # 0.0 K/mm3 (0.0-0.1) 06/27/17 04:52 Seg Neutrophils % 43.2 % (40.0-70.0) 06/27/17 04:52 Seg Neutrophils # 2.7 K/mm3 (1.8-7.7) 06/27/17 04:52 PT 12.7 Sec. (12.2-14.9) 06/26/17 18:23 INR 0.91 (0.87-1.13) 06/26/17 18:23 Sodium 139 mmol/L (137-145) 06/27/17 04:52 Potassium 3.6 mmol/L (3.6-5.0) 06/27/17 04:52 Chloride 105.7 mmol/L (98-107) 06/27/17 04:52 Carbon Dioxide 23 mmol/L (22-30) 06/27/17 04:52 Anion Gap 14 mmol/L 06/27/17 04:52 BUN 8 mg/dL (7-17) 06/27/17 04:52 Creatinine 0.6 mg/dL (0.7-1.2) L 06/27/17 04:52 Estimated GFR > 60 ml/min 06/27/17 04:52 BUN/Creatinine Ratio 13 % 06/27/17 04:52 Glucose 101 mg/dL (65-100) H 06/27/17 04:52 POC Glucose 197 (70-105) H 06/28/17 11:51 Hemoglobin A1c 5.5 % (4-6) 06/27/17 00:01 Calcium 8.6 mg/dL (8.4-10.2) 06/27/17 04:52 Total Bilirubin 0.30 mg/dL (0.1-1.2) 06/27/17 04:52 AST 9 units/L (5-40) 06/27/17 04:52 ALT 7 units/L (7-56) 06/27/17 04:52 Alkaline Phosphatase 51 units/L (35-129) 06/27/17 04:52 Troponin T < 0.010 ng/mL (0.00-0.029) 06/26/17 14:00 Total Protein 5.4 g/dL (6.3-8.2) L 06/27/17 04:52 Albumin 3.3 g/dL (3.9-5) L 06/27/17 04:52 Albumin/Globulin Ratio 1.6 % 06/27/17 04:52 Amylase 56 units/L (27-131) 06/26/17 18:23 Lipase 39 units/L (13-60) 06/26/17 18:23 Urine Color Yellow (Yellow) 06/26/17 10:29 Urine Turbidity Clear (Clear) 06/26/17 10:29 Urine pH 7.0 (5.0-7.0) 06/26/17 10:29 Ur Specific [place] 1.011 (1.003-1.030) 06/26/17 10:29 Urine Protein <15 mg/dl mg/dL (Negative) 06/26/17 10:29 Urine Glucose (UA) Neg mg/dL (Negative) 06/26/17 10:29 Urine Ketones Neg mg/dL (Negative) 06/26/17 10:29 Urine Blood Neg (Negative) 06/26/17 10:29 Urine Nitrite Neg (Negative) 06/26/17 10:29 Urine Bilirubin Neg (Negative) 06/26/17 10:29 Urine Urobilinogen < 2.0 mg/dL (<2.0) 06/26/17 10:29 Ur Leukocyte Esterase Tr (Negative) 06/26/17 10:29 Urine WBC (Auto) 1.0 /HPF (0.0-6.0) 06/26/17 10:29 Urine RBC (Auto) 1.0 /HPF (0.0-6.0) 06/26/17 10:29 U Epithel Cells (Auto) 2.0 /HPF (0-13.0) 06/26/17 10:29 Salicylates < 0.3 mg/dL (2.8-20.0) L 06/26/17 09:58 Urine Opiates Screen Presumptive negative 06/26/17 10:29 Urine Methadone Screen Presumptive negative 06/26/17 10:29 Acetaminophen < 5.0 ug/mL (10.0-30.0) L 06/26/17 09:58 Ur Barbiturates Screen Presumptive negative 06/26/17 10:29 Ur Phencyclidine Scrn Presumptive negative 06/26/17 10:29 Ur Amphetamines Screen Presumptive negative 06/26/17 10:29 U Benzodiazepines Scrn Presumptive negative 06/26/17 10:29 Urine Cocaine Screen Presumptive positive 06/26/17 10:29 U Marijuana (THC) Screen Presumptive positive 06/26/17 10:29 Drugs of Abuse Note Disclamer 06/26/17 10:29 Plasma/Serum Alcohol < 0.01 % (0-0.07) 06/26/17 09:58
[2017-06-28] MEDS: DESYREL PO SCH (21:43)
[2017-06-29] MEDS: D5NS 1,000 ML IV SCH ×2 (01:18→10:31)
[2017-06-29] MEDS: CATAPRES PO SCH ×4 (01:28→15:04)
[2017-06-29] MEDS: ATIVAN PO SCH ×2 (01:29→10:33)
[2017-06-29] MEDS: THERAGRAN Tab PO SCH (09:20)
[2017-06-29] MEDS: HABITROL TD SCH (09:20)
[2017-06-29] MEDS: SODIUM CHLORIDE FLUSH SYRINGE 10 ML IV SCH (09:21)
[2017-06-29] MEDS: FOLVITE PO SCH (09:21)
[2017-06-29] MEDS: PEPCID PO SCH (09:21)
[2017-06-29] MEDS: HEPARIN SUB-Q SCH (09:24)
[2017-06-29] MEDS: VITAMIN B-1 PO SCH (10:31)
--- NOTE | 2017-06-29 13:33 | Discharge Summary ---
Providers - Providers Date of Admission: 06/26/17 15:28 Date of discharge: 06/29/17 Attending physician: JACLYN CARTY Primary care physician: GROUNDMAN/LINEMAN Hospitalization Reason for admission: drug detox program/binge drinking of alcohol and crack cocaine use Condition: Stable Pertinent studies: Chest x-ray; no acute abnormality noted Hospital course: 52-year-old -[place] female patient with history of alcohol and crack cocaine abuse ongoing tobacco use was drug-free for the last 10 years had binge alcohol and crack cocaine intake and was admitted through emergency room for drug rehabilitation Patient was admitted to the hospital evaluated by [facility] personal And managed drug rehabilitation appropriate treatment protocol Patient's symptoms gradually improved Closely monitored for any withdrawal symptoms Today she is comfortable no new complaints Vital signs stable Counseling done patient strongly advised smoking cessation. Advised to quit alcohol and recreational drug use [id number] evaluation physical examination done by me prior to discharge Is unremarkable Patient is stable for discharge and follow up with [facility] organization per schedule Discharge diagnosis; --drug rehabilitation --History of alcohol abuse; --Cocaine abuse; --Ongoing tobacco use; --Mild Hyperglycemia ; no diabetes --Moderate protein calorie malnutrition; hypoalbuminemia --Bipolar disorder; continue Seroquel follow psych Disposition: DC-01 TO HOME OR SELFCARE Time spent for discharge: 32 min Core Measure Documentation - Palliative Care Palliative Care/ Comfort Measures: Not Applicable - Core Measures Any of the following diagnoses?: none Exam - Constitutional Vitals: Temp Pulse Resp BP Pulse Ox 98.7 F 70 18 125/71 100 06/29/17 07:42 06/29/17 10:00 06/29/17 10:00 06/29/17 09:24 06/29/17 10:00 General appearance: Present: no acute distress, well-nourished - EENT Eyes: Present: PERRL, EOM intact - Neck Neck: Present: supple, normal ROM - Respiratory Respiratory effort: normal Respiratory: negative: rales, rhonchi, wheezing - Cardiovascular Rhythm: regular Heart Sounds: Present: S1 & S2 - Extremities Extremities: no ischemia, No edema Peripheral Pulses: within normal limits - Abdominal General gastrointestinal: Present: soft, non-tender, non-distended, normal bowel sounds - Integumentary Integumentary: Present: clear, warm - Musculoskeletal Musculoskeletal: strength equal bilaterally, generalized weakness - Psychiatric Psychiatric: appropriate mood/affect, cooperative - Neurologic Neurologic: CNII-XII intact, moves all extremities Plan Activity: no restrictions Diet: regular Additional Instructions: Follow-up with [facility] per scheduled. Advised drug rehabilitation Follow up with: PRIMARY CARE, [Primary Care Provider] - 7 Days Prescriptions: Famotidine [Pepcid] 20 mg PO BID #30 tablet Folic Acid [Folvite] 1 mg PO DAILY #30 tablet Nicotine [Habitrol] 21 mg TD QDAY #30 patch Thiamine [Vitamin B-1] 100 mg PO QDAY #30 tablet
[2017-06-29 14:52] VITALS: BP 134/78
== END 2017-06-29 14:30 | disposition home or self-care (01) | DRG 641 ==
LOC: ED 09:37 → 2B-ACE 15:28
PROVIDERS: ADMIT Internal Medicine; ATTEND Internal Medicine
DX: E86.0 Dehydration (principal); E44.0 Moderate protein-calorie malnutrition; R73.9 Hyperglycemia, unspecified; F17.200 Nicotine dependence, unspecified, uncomplicated; F31.9 Bipolar disorder, unspecified; F14.10 Cocaine abuse, uncomplicated; F10.20 Alcohol dependence, uncomplicated; F12.90 Cannabis use, unspecified, uncomplicated; Z68.31 Body mass index [BMI] 31.0-31.9, adult; Z71.6 Tobacco abuse counseling; Z71.41 Alcohol abuse counseling and surveillance of alcoholic; Z79.899 Other long term (current) drug therapy; Z98.51 Tubal ligation status; Z82.49 Family history of ischemic heart disease and other diseases of the circulatory system; Z88.0 Allergy status to penicillin
CPT/HCPCS: 36415; 71046; 80048; 80053; 80307; 80320; 81001; 82150; 82962; 83036; 83690; 84484; 85025; 85610; 93005; 93010; G0480; J1644; J3411; J7030; J7042; J7120; Q0177

== ENCOUNTER 2019-09-11 18:47 | Emergency (ER) | payer MEDICARE ==
[2019-09-11 19:30] VITALS: BP 149/99
== END 2019-09-12 00:32 | disposition left against medical advice (07) ==
LOC: ED 18:47
DX: S71.152A Open bite, left thigh, initial encounter (principal); Z53.21 Procedure and treatment not carried out due to patient leaving prior to being seen by health care provider; W54.0XXA Bitten by dog, initial encounter; Y93.89 Activity, other specified; Y92.89 Other specified places as the place of occurrence of the external cause; Y99.8 Other external cause status

== ENCOUNTER 2020-07-14 15:19 | Emergency (ER) | payer MEDICARE ==
[2020-07-14 16:17] LABS: Alanine Aminotransferase 18 units/L (7-56); Albumin 4.1 g/dL (3.9-5); Blood Urea Nitrogen 24 mg/dL (7-17); Calcium 8.9 mg/dL (8.4-10.2); Hemolysis Index 8
[2020-07-14 16:19] LABS: Basophils # (Auto) 0.1 K/mm3 (0.0-0.1); Basophils % (Auto) 0.9 % (0.0-1.8); Eosinophils # (Auto) 0.2 K/mm3 (0.0-0.4); Eosinophils % (Auto) 1.9 % (0.0-4.3); Hematocrit 41.5 % (30.3-42.9); Hemoglobin 14.2 gm/dl (10.1-14.3); Lymphocytes # (Auto) 3.4 K/mm3 (1.2-5.4); Lymphocytes % (Auto) 40.4 % (13.4-35.0); Mean Corpuscular HGB Conc 34 % (30-34); Mean Corpuscular Volume 87 fl (79-97); Monocytes # (Auto) 0.5 K/mm3 (0.0-0.8); Platelet Count 264 K/mm3 (140-440); Red Blood Count 4.79 M/mm3 (3.65-5.03); Red Cell Distribution Width 14.9 % (13.2-15.2)
[2020-07-14 16:25] LABS: BUN/Creatinine Ratio 34
--- NOTE | 2020-07-14 16:58 | Emergency Department Report ---
ED General Adult HPI - General Chief complaint: Back Pain/Injury Stated complaint: infection Time Seen by Provider: 07/14/20 15:43 Source: patient Mode of arrival: Ambulatory Limitations: No Limitations - History of Present Illness Initial comments: Patient is a 55-year-old female who presents emergency room with complaints of lower back pain that radiates down her left leg that she has had since 2017. She is currently seeing an orthopedic doctor for this complaint. Patient states that her orthopedic doctor advised her to follow-up with a primary care doctor "to make sure she did not have an infection anywhere." I asked patient where she would have an infection and she states "she does not know." She states that occasionally she has night sweats and sometimes gets diarrhea. She denies any fever, cough, vomiting, abdominal pain, urinary symptoms, chest pain, shortness of breath. Past medical history of diabetes, hypertension, depression, bipolar. She has an allergy to penicillin. She does have a primary care doctor but did not follow-up with them and instead came to the emergency room. - Related Data Home Medications Medication Instructions Recorded Confirmed Last Taken Divalproex Sodium [Divalproex 500 mg PO HS 06/26/17 06/26/17 06/23/17 21:00 Sodium ER] Quetiapine Fumarate [QUEtiapine 300 mg PO HS 06/26/17 06/26/17 06/23/17 21:00 Fumarate] Zanaflex 2 mg PO Q4H PRN 06/26/17 06/26/17 Unknown Previous Rx's Medication Instructions Recorded Last Taken Type Famotidine [Pepcid] 20 mg PO BID #30 tablet 06/29/17 Unknown Rx Folic Acid [Folvite] 1 mg PO DAILY #30 tablet 06/29/17 Unknown Rx Nicotine [Habitrol] 21 mg TD QDAY #30 patch 06/29/17 Unknown Rx Thiamine [Vitamin B-1] 100 mg PO QDAY #30 tablet 06/29/17 Unknown Rx HYDROcodone/APAP 5-325 [[place] 1 - 2 each PO Q6HR PRN #10 tablet 07/06/19 Unknown Rx 5/325] Ibuprofen [Motrin 800 MG tab] 800 mg PO Q8HR PRN #20 tablet 07/06/19 Unknown Rx levoFLOXacin [Levaquin TAB] 500 mg PO QDAY #7 tablet 07/06/19 Unknown Rx Allergies Allergy/AdvReac Type Severity Reaction Status Date / Time Penicillins Allergy Hives Verified 06/26/17 09:40 ED Review of Systems ROS: Stated complaint: infection Other details as noted in HPI Comment: All other systems reviewed and negative ED Past Medical Hx - Past Medical History Hx Hypertension: Yes Hx Diabetes: Yes Hx Headaches / Migraines: No Hx Seizures: No Hx Psychiatric Treatment: Yes (BIPOLAR, DEPRESSION) Hx Asthma: No Additional medical history: BRONCHITIS - Surgical History Additional Surgical History: TUBAL LIGATION. right big toe - Social History Smoking Status: Current Every Day Smoker Substance Use Type: Alcohol - Medications Home Medications: Home Medications Medication Instructions Recorded Confirmed Last Taken Type Divalproex Sodium [Divalproex 500 mg PO HS 06/26/17 06/26/17 06/23/17 21:00 History Sodium ER] Quetiapine Fumarate [QUEtiapine 300 mg PO HS 06/26/17 06/26/17 06/23/17 21:00 History Fumarate] Zanaflex 2 mg PO Q4H PRN 06/26/17 06/26/17 Unknown History Famotidine [Pepcid] 20 mg PO BID #30 tablet 06/29/17 Unknown Rx Folic Acid [Folvite] 1 mg PO DAILY #30 tablet 06/29/17 Unknown Rx Nicotine [Habitrol] 21 mg TD QDAY #30 patch 06/29/17 Unknown Rx Thiamine [Vitamin B-1] 100 mg PO QDAY #30 tablet 06/29/17 Unknown Rx HYDROcodone/APAP 5-325 [[place] 1 - 2 each PO Q6HR PRN #10 tablet 07/06/19 Unknown Rx 5/325] Ibuprofen [Motrin 800 MG tab] 800 mg PO Q8HR PRN #20 tablet 07/06/19 Unknown Rx levoFLOXacin [Levaquin TAB] 500 mg PO QDAY #7 tablet 07/06/19 Unknown Rx ED Physical Exam - General Limitations: No Limitations General appearance: alert, in no apparent distress - Head Head exam: Present: atraumatic, normocephalic - Eye Eye exam: Present: normal appearance - ENT ENT exam: Present: mucous membranes moist - Neck Neck exam: Present: normal inspection, full ROM. Absent: tenderness, meningismus - Respiratory Respiratory exam: Present: normal lung sounds bilaterally. Absent: respiratory distress, wheezes, rales, rhonchi, stridor, chest wall tenderness, accessory muscle use, decreased breath sounds, prolonged expiratory - Cardiovascular Cardiovascular Exam: Present: regular rate, normal rhythm, normal heart sounds. Absent: systolic murmur, diastolic murmur, rubs, gallop - GI/Abdominal GI/Abdominal exam: Present: soft, normal bowel sounds. Absent: distended, tenderness, guarding, rebound, rigid - Back Exam Back exam: Present: normal inspection, full ROM. Absent: CVA tenderness (R), CVA tenderness (L), paraspinal tenderness, vertebral tenderness - Neurological Exam Neurological exam: Present: alert, oriented X3 - Psychiatric Psychiatric exam: Present: normal affect, normal mood - Skin Skin exam: Present: warm, dry, intact ED Course Vital Signs 07/14/20 07/14/20 15:26 17:50 Temperature 99.8 F H 99.3 F Pulse Rate 101 H 86 Respiratory 18 18 Rate Blood Pressure 122/76 130/78 O2 Sat by Pulse 98 99 Oximetry ED Medical Decision Making - Lab Data Result diagrams: 07/14/20 15:46 07/14/20 15:46 Lab Results 07/14/20 07/14/20 07/14/20 Range/Units 15:35 15:46 15:46 WBC 8.5 (4.5-11.0) K/mm3 RBC 4.79 (3.65-5.03) M/mm3 Hgb 14.2 (10.1-14.3) gm/dl Hct 41.5 (30.3-42.9) % MCV 87 (79-97) fl MCH 30 (28-32) pg MCHC 34 (30-34) % RDW 14.9 (13.2-15.2) % Plt Count 264 (140-440) K/mm3 Lymph % (Auto) 40.4 H (13.4-35.0) % [place] % (Auto) 6.0 (0.0-7.3) % Eos % (Auto) 1.9 (0.0-4.3) % Baso % (Auto) 0.9 (0.0-1.8) % Lymph # (Auto) 3.4 (1.2-5.4) K/mm3 [place] # (Auto) 0.5 (0.0-0.8) K/mm3 Eos # (Auto) 0.2 (0.0-0.4) K/mm3 Baso # (Auto) 0.1 (0.0-0.1) K/mm3 Seg Neutrophils % 50.8 (40.0-70.0) % Seg Neutrophils # 4.3 (1.8-7.7) K/mm3 Sodium 139 (137-145) mmol/L Potassium 4.5 (3.6-5.0) mmol/L Chloride 104.2 (98-107) mmol/L Carbon Dioxide 26 (22-30) mmol/L Anion Gap 13 mmol/L BUN 24 H (7-17) mg/dL Creatinine 0.7 (0.6-1.2) mg/dL Estimated GFR > 60 ml/min BUN/Creatinine Ratio 34 % Glucose 89 (65-100) mg/dL Calcium 8.9 (8.4-10.2) mg/dL Total Bilirubin 0.20 (0.1-1.2) mg/dL AST 18 (5-40) units/L ALT 18 (7-56) units/L Alkaline Phosphatase 69 (35-129) units/L Total Protein 6.8 (6.3-8.2) g/dL Albumin 4.1 (3.9-5) g/dL Albumin/Globulin Ratio 1.5 % Urine Color Yellow (Yellow) Urine Turbidity Clear (Clear) Urine pH 5.0 (5.0-7.0) Ur Specific [place] 1.026 (1.003-1.030) Urine Protein <15 mg/dl (Negative) mg/dL Urine Glucose (UA) Neg (Negative) mg/dL Urine Ketones Neg (Negative) mg/dL Urine Blood Neg (Negative) Urine Nitrite Neg (Negative) Urine Bilirubin Neg (Negative) Urine Urobilinogen 2.0 (<2.0) mg/dL Ur Leukocyte Esterase Neg (Negative) Urine WBC (Auto) 2.0 (0.0-6.0) /HPF Urine RBC (Auto) 3.0 (0.0-6.0) /HPF U Epithel Cells (Auto) 3.0 (0-13.0) /HPF Urine Mucus Few /HPF Vital Signs 07/14/20 07/14/20 15:26 17:50 Temperature 99.8 F H 99.3 F Pulse Rate 101 H 86 Respiratory 18 18 Rate Blood Pressure 122/76 130/78 O2 Sat by Pulse 98 99 Oximetry - Medical Decision Making Patient is a 55-year-old female who presents emergency room with complaints of lower back pain that radiates down her left leg that she has had since 2017. She is currently seeing an orthopedic doctor for this complaint. Patient states that her orthopedic doctor advised her to follow-up with a primary care doctor "to make sure she did not have an infection anywhere." I asked patient where she would have an infection and she states "she does not know." She states that occasionally she has night sweats and sometimes gets diarrhea. She denies any fever, cough, vomiting, abdominal pain, urinary symptoms, chest pain, shortness of breath. Past medical history of diabetes, hypertension, depression, bipolar. She has an allergy to penicillin. She does have a primary care doctor but did not follow-up with them and instead came to the emergency room. Vitals are stable. No midline or paraspinal C-spine, T-spine, L-spine tenderness palpation, no step-offs, no deformities, no focal neuro deficits, no CVA tenderness, no abdominal tenderness. Labs are normal. UA is within normal limits. Discussed all results with patient. Discussed the importance of [facility] follow-up for further evaluation and examination. Advised patient to have her orthopedic doctor discuss with her primary care doctor as well. Patient has no abnormality on physical examination. Her vitals are stable. Advised patient please follow up with your primary care doctor for further evaluation and assessment. follow up with with orthopedic doctor. return to the emergency room for any new or worsening symptoms. Critical care attestation.: If time is entered above; I have spent that time in minutes in the direct care of this critically ill patient, excluding procedure time. ED Disposition Clinical Impression: Chronic back pain Qualifiers: Back pain location: low back pain Back pain laterality: left Sciatica presence: with sciatica Sciatica laterality: sciatica of left side Qualified Code(s): M54.42 - Lumbago with sciatica, left side Disposition: - TO HOME OR SELFCARE Is pt being admited?: No Does the pt Need Aspirin: No Condition: Stable Additional Instructions: please follow up with your primary care doctor for further evaluation and ass essment. follow up with with orthopedic doctor. return to the emergency room for any new or worsening symptoms. Referrals: BENTLEY LEE MD [Primary Care Provider] - 2-3 Days Time of Disposition: 17:53 Print Language: URDU
[2020-07-14 17:26] LABS: Bilirubin,Urine NEG (Negative); Blood,Urine NEG (Negative); Color,Urine Yellow (Yellow); Mucus,Urine FEW /HPF; Protein,Urine <15 mg/dL mg/dL (Negative)
[2020-07-14 17:52] VITALS: BP 130/78
== END 2020-07-14 18:23 | disposition home or self-care (01) ==
LOC: ED 15:19
DX: M54.5 Low back pain (principal); M79.605 Pain in left leg; I10 Essential (primary) hypertension; E11.9 Type 2 diabetes mellitus without complications; F32.9 Major depressive disorder, single episode, unspecified; F17.200 Nicotine dependence, unspecified, uncomplicated; Z98.890 Other specified postprocedural states; Z79.899 Other long term (current) drug therapy; Z88.0 Allergy status to penicillin
CPT/HCPCS: 36415; 80053; 81001; 85025